=== PATIENT | male | born 1940 | race Caucasian/White ===

== ENCOUNTER 2016-08-09 09:34 | Day surgery (SDC) | payer MEDICARE ==
[~2016-08-09 09:34] MED LIST: FENTANYL 250 MCG/5 ML AMP IV PRN; LACTATED RINGERS 1,000 ML IV SCH; MIDAZOLAM HCL 5 MG/5 ML VIAL IV PRN
[2016-08-09] MEDS ORDERED: IV START KIT ONE (09:46)
[2016-08-09] MEDS ORDERED: LACTATED RINGERS 1,000 ML ONE (09:46)
[2016-08-09] MEDS ORDERED: FENTANYL 5 ML ONE (10:43)
[2016-08-09] MEDS ORDERED: MIDAZOLAM HCL 5 MG/5 ML VIAL ONE (10:43)
--- NOTE | 2016-08-11 09:35 | SURGPATH ---
[facility] [address] [place] [id number] Patient Name: WAYNE MIRELES MR#: [id number] : 1940 Gender: M Specimen #: [id number] Collected: 08/09/2016 Received: 08/10/2016 Reported: 08/11/2016 Submitting Phys: ALVARO MCADAMS Copy To Phys: [facility] Clinical History / Pre-Operative Diagnosis: HISTORY OF COLON POLYPS; SCREENING COLONOSCOPY Specimen Source / Surgical Procedure Performed: SIGMOID COLON POLYP AT 15 CM Interpretation: SIGMOID COLON, POLYP AT 15 CM, BIOPSY: - HYPERPLASTIC POLYP Electronically Signed Out Dorinda Mao M.D. Gross Description: The specimen is received in a formalin filled container labeled with the patient's name and "sigmoid colon polyp at 15 cm". Two willis-nunez biopsies are 0.3 and 0.6 cm. Totally embedded in one cassette. Roldan Silva, PSpringASpring Microscopic Description: Sections show fragments of hyperplastic colonic mucosa without dysplasia. 1: [id number] K63.5
== END 2016-08-09 12:03 | disposition home or self-care (01) ==
LOC: SDC 09:34
PROVIDERS: ATTEND Internal Medicine Gastroenterology
PROC: 0DBN8ZX Excision of Sigmoid Colon, Via Natural or Artificial Opening Endoscopic, Diagnostic (ICD-10-PCS; principal; 2016-08-09)
DX: Z12.11 Encounter for screening for malignant neoplasm of colon (principal); D12.5 Benign neoplasm of sigmoid colon; K57.30 Diverticulosis of large intestine without perforation or abscess without bleeding; Z86.010 Personal history of colon polyps; Z87.891 Personal history of nicotine dependence; Z86.73 Personal history of transient ischemic attack (TIA), and cerebral infarction without residual deficits; I10 Essential (primary) hypertension; M81.0 Age-related osteoporosis without current pathological fracture; F41.9 Anxiety disorder, unspecified; Z88.8 Allergy status to other drugs, medicaments and biological substances; Z79.82 Long term (current) use of aspirin
CPT/HCPCS: 45380; J3010; J2250; J7120